=== PATIENT | female | born 2000 | race African-American/Black ===

== ENCOUNTER 2024-02-08 09:28 | Emergency (ER) | payer BC, OTHER ==
[~2024-02-08] VITALS: Ht 167.6 cm; Wt 57.6 kg
[2024-02-08 11:52] VITALS: BP 141/93; PULSE 90; RESP 18; TEMP 98; O2SAT 98
--- NOTE | 2024-02-08 11:57 | ED.PDOC ---
Eye-HPI HPI Comments 23 year old presents for right temporal headache, pressure behind the right eye, right ear pain and nausea that comes and goes Started 3 days ago Tried naproxen and Sudafed No other complaints Pain rated 04/18 LMP: 01/21/2024 Chief Complaint: Earache Time Seen by MD: 10:12 Reviewed Notes: Nurses Notes, Medications, Allergies Allergies: Coded Allergies: Amoxicillin (Verified Allergy, Unknown, 02/08/24) Sulfa Antibiotics (Verified Allergy, Unknown, 02/08/24) Uncoded Allergies: AMXOICILLIN (Allergy, Unknown, 02/08/24) SULFA (Allergy, Unknown, 02/08/24) Information Source: Patient Mode of Arrival: Ambulatory Family History Family History: Reviewed,noncontributory to illness Social History Smoker: Non-Smoker Alcohol: Denies ETOH Use Drugs: Denies Drug Use All Other Systems: Reviewed and Negative (per hpi) Physical Exam General Appearance: No Apparent Distress, Normal HEENT: Head (normocephalic atraumatic), Normal ENT Inspection, PERRL/EOMI, Pharynx Normal, TMs Normal Neck: Full Range of Motion, Non-Tender, Normal, Normal Inspection Respiratory: Chest Non-Tender, Lungs Clear, No Accessory Muscle Use, No Respiratory Distress, Normal Breath Sounds Cardiovascular: No Murmur, No Gallop, Regular Rate/Rhythm Breast Exam: Deferred Gastrointestinal: No Organomegaly, Non Tender, No Pulsatile Mass, Normal Bowel Sounds, Soft Genitalia: Deferred Pelvic: Deferred Rectal: Deferred Extremities: No calf tenderness, Normal capillary refill, Normal inspection, Normal range of motion, Non-tender, No pedal edema Musculoskeletal : Apperance: Normal Neurologic: Alert, lock operator II-XII nml as Tested, No Motor Deficits, Normal Affect, Normal Mood, No Sensory Deficits, Other (Romberg and pronator drift neg) Cerebellar Function: Normal Reflexes: Normal Skin: Dry, Normal Color, Warm Lymphatic: No Adenopathy Was a procedure done? Was a procedure done?: No EENT DIFF Eye: Other X-Ray, Labs, Meds, VS Vital Signs Date Time Temp Pulse Resp B/P (MAP) Pulse Ox O2 Delivery O2 Flow Rate FiO2 02/08/24 11:52 98.0 90 18 141/93 (109) 98 98.0 02/08/24 11:52 90 18 98 Room Air 02/08/24 09:41 98.0 90 18 141/93 (109) 98 Lab Test 02/08/24 13:13 02/08/24 11:58 Range/Units White Blood Count 5.0 4.4-10.8 10^3/uL Red Blood Count 4.40 4.0-5.20 10^6/uL Hemoglobin 13.0 12.2-16.2 g/dL Hematocrit 39.1 36.0-46.0 % Mean Corpuscular Volume 88.8 80.0-100.0 fL Mean Corpuscular Hemoglobin 29.4 28.0-32.0 pg Mean Corpuscular Hemoglobin Concent 33.1 32.0-36.0 g/dL Red Cell Distribution Width 13.3 11.8-14.3 % Platelet Count 274 140-450 10^3/uL Mean Platelet Volume 8.2 6.9-10.8 fL Neutrophils (%) (Auto) 73.0 37.0-80.0 % Lymphocytes (%) (Auto) 20.1 10.0-50.0 % Monocytes (%) (Auto) 5.5 0.0-12.0 % Eosinophils (%) (Auto) 0.2 0.0-7.0 % Basophils (%) (Auto) 1.2 0.0-2.0 % Neutrophils # (Auto) 3.7 1.6-8.6 10 ^3/uL Lymphocytes # (Auto) 1.0 0.4-5.4 10 ^3/uL Monocytes # (Auto) 0.3 0-1.3 10 ^3/uL Eosinophils # (Auto) 0 0-0.8 10 ^3/uL Basophils # (Auto) 0.1 0-0.2 10 ^3/uL Nucleated Red Blood Cells 0.1 % Sodium Level 140 136-145 mmol/L Potassium Level 4.0 3.5-5.1 mmol/L Chloride Level 110 H 98-107 mmol/L Carbon Dioxide Level 24 20-31 mmol/L Anion Gap 6 5-15 Blood Urea Nitrogen 7 L 9-23 mg/dL Creatinine 0.77 0.550-1.02 mg/dL Glomerular Filtration Rate Calc 111 >90 mL/min BUN/Creatinine Ratio 9.1 L 10.0-20.0 Serum Glucose 103 74-106 mg/dL Calcium Level 8.8 8.7-10.4 mg/dL Urine Color Straw Yellow Urine Clarity Clear Clear Urine pH 7.0 5.0-9.0 Urine Specific [place] 1.006 1.001-1.035 Urine Protein Negative Negative Urine Ketones Negative Negative Urine Blood Negative Negative /uL Urine Nitrite Negative Negative Urine Bilirubin Negative Negative Urine Urobilinogen Normal Negative mg/dL Urine Leukocyte Esterase 1+ Negative /uL Urine RBC 2 0 - 4 /hpf Urine WBC <1 0 - 5 /hpf Urine Squamous Epithelial Cells Few <5 /hpf Urine Bacteria Few H None Seen /hpf Urine Glucose Normal Normal mg/dL Urine Test Negative Negative X-Ray, Labs, Meds, VS Comment History consistent with migraines/no acute bleed Patient complains of unilateral, throbbing, pulsating headache without aura Patient complains of pressing or tightening nonpulsatile headache, headache is not aggravated by activity No indication for head CT at this time Low concern for meningitis as there are no signs of fever, altered mentation nor neck stiffness. Low concern for subarachnoid hemorrhage there are no signs of a thunderclap headache Low concern for subdural hematoma and intracranial hemorrhage as there is no history of trauma, progressively worsening headache and neuroexam is un remarkable. Low suspicion for brain tumor as neuroexam is unremarkable. No nausea vomiting. No morning or nocturnal headache. No suspicion for temporal arteritis as there are no signs of fever, muscle weakness, jaw claudication, no transient visual loss. Counseled to start headache diary Recommended headache elimination diet Avoid prolonged periods of fasting Drink plenty of water Exercise daily, limit screen time Aim to sleep 8 to 9 hours per night, practice good hygiene ED precautions given On reevaluation, patient had symptomatic improvement. Patient is stable for discharge at this time. External notes reviewed. Test results and diagnostic imaging interpreted. All diagnostic findings, discharge care, education and instructions provided Follow-up with PCP in 2 to 3 days Patient verbalized understanding and agreed to treatment plan Vital signs stable, afebrile, no acute distress noted Patient ambulatory with strong steady gait Advised to return precautions for any new or worsening symptoms, return to ER immediately for re-evaluation Patient is aware that the purpose of this visit was for an acute medical emergency requiring emergent stabilization. Chronic conditions, including malignancies have not been ruled out. Patient is instructed to follow up with PCP as directed and discharge instructions for continued care and workup. If unable to arrange follow-up, patient is to return to the emergency department for reassessment. Patient (parent or legal guardian if applicable) was given verbal and written discharge instructions and acknowledges understanding. Time of 1ST Reevaluation: 11:57 Reevaluation 1ST: Improved Patient Education/Counseling: Diagnosis, Treatment Family Education/Counseling: Diagnosis, Treatment Departure 1 Departure Time of Disposition: 14:38 Impression: Primary Impression: Migraine Qualified Codes: G43.909 - Migraine, unspecified, not intractable, without status migrainosus Disposition: 01 HOME / SELF CARE / HOMELESS Condition: Fair Discharged With: Self Critical Care Note Critical Care Time?: No Stability Stability form required: No Heart Score Heart Score: Heart Score Response (Comments) Value History N/A 0 EKG N/A 0 Age N/A 0 Risk Factors N/A 0 Troponin N/A 0 Total 0 AXEL VITAL NP Feb 08, 2024 11:57
[2024-02-08] MEDS: diphenhdrAMINE HCL 12.5 MG/5 ML UD PO ONE (12:00)
[2024-02-08] MEDS: diphenhdrAMINE HCL 50 MG/1 ML VL IV ONE (12:00)
[2024-02-08] MEDS: KETOROLAC TROMETH 30 MG/ML 1ML VIAL IV ONE (12:00)
[2024-02-08] MEDS: PROCHLORPERAZINE EDISYLATE 5 MG/ML 2ML VIAL IV ONE (12:00)
[2024-02-08] MEDS: SODIUM CHLORIDE 0.9% 1,000 ML IV ONE (12:36)
[2024-02-08 13:48] LABS: Basophils # (auto) 0.1 10 ^3/uL (0-0.2); Basophils % (auto) 1.2 % (0.0-2.0); Eosinophils # (auto) 0 10 ^3/uL (0-0.8); Eosinophils % (auto) 0.2 % (0.0-7.0); Hematocrit 39.1 % (36.0-46.0); Lymphocytes % (auto) 20.1 % (10.0-50.0); Mean Corpuscular Hemoglobin 29.4 pg (28.0-32.0); Mean Corpuscular Hgb Conc. 33.1 g/dL (32.0-36.0); Mean Corpuscular Volume 88.8 fL (80.0-100.0); Monocytes # (auto) 0.3 10 ^3/uL (0-1.3); Monocytes % (auto) 5.5 % (0.0-12.0); Neutrophils # (auto) 3.7 10 ^3/uL (1.6-8.6); Nucleated Red Blood Cells % 0.1 %; Platelet Count (auto) 274 10^3/uL (140-450); Red Cell Distribution Width 13.3 % (11.8-14.3)
[2024-02-08 13:52] LABS: Sodium 140 mmol/L (136-145)
[2024-02-08 13:53] LABS: Anion Gap 6 (5-15); Calcium 8.8 mg/dL (8.7-10.4); Carbon Dioxide 24 mmol/L (20-31)
[2024-02-08 13:55] LABS: Chloride 110 mmol/L (98-107)
[2024-02-08 13:58] LABS: BUN/Creatinine Ratio 9.1 (10.0-20.0); Glucose 103 mg/dL (74-106)
[2024-02-08 14:01] LABS: Blood Urea Nitrogen 7 mg/dL (9-23)
[2024-02-08 14:16] LABS: Urine Bacteria FEW /hpf (None Seen); Urine Blood Negative /uL (Negative); Urine Clarity Clear (Clear); Urine Protein, UAD Negative (Negative); Urine Specific Gravity 1.006 (1.001-1.035); Urine Squamous Epithelial Cell FEW /hpf (<5); Urine Urobilinogen Normal (Negative); Urine WBC <1 /hpf (0 - 5)
[2024-02-08 14:21] LABS: Urine Color STRAW (Yellow)
== END 2024-02-08 14:50 | disposition home or self-care (01) ==
LOC: ER 09:28
DX: H92.01 Otalgia, right ear (principal); G43.909 Migraine, unspecified, not intractable, without status migrainosus; Z88.1 Allergy status to other antibiotic agents; Z88.2 Allergy status to sulfonamides; Z88.8 Allergy status to other drugs, medicaments and biological substances
CPT/HCPCS: 36415; 80048; 81001; 81025; 85025; 96360; 99283; J0780; J1200; J1885; J7030